=== PATIENT | male | born 1960 | race Caucasian/White ===

== ENCOUNTER → 2017-10-08 10:43 | Outpatient (CLI) | payer OTHER, SELFPAY ==
[2017-10-08 12:17] LABS: Absolute Lymphocyte Count 1.39 X10^3/ul (0.83-4.51); Absolute Neutrophil Count 2.9 X10^3/uL (2.0-7.7); Basophil# 0.02 X10^3/uL; Basophil% 0.4 % (0-1); Eosinophil# 0.07 X10^3/uL; Eosinophils% 1.5 % (0-5); Hematocrit 45.2 % (40-54); Hemoglobin 15.6 g/dl (13.0-16.5); Lymphocyte # 1.39 X10^3/ul (4.0); Lymphocyte % 29.3 % (19-41); Mean Corp Hgb Conc 34.5 g/gl (32-36); Mean Corpuscular Hgb 31.8 pg (27.0-32.0); Mean Corpuscular Volume 92.2 fL (80-94); Mean Platelet Vol. 12.5 fl (6.2-12.0); Monocyte# 0.39 X10^3/uL; Monocyte% 8.2 % (0-10); Neutrophil # 2.87 X10^3/uL (2.7-7.7); Neutrophil % 60.4 % (47-70); Platelet Count 66 K/mm3 (150-450); RBC Distribution Width SD 43.9 fl (35.1-43.9); White Blood Count 4.8 K/mm3 (4.4-11.0)
[2017-10-08 12:23] LABS: POSITIVE COUNT NO; POSITIVE DIFFERENTIAL NO; POSITIVE MORPHOLOGY NO
[2017-10-08 12:43] LABS: ALB/GLOB Ratio 0.9 RATIO (0.9-2.4); AST(SGOT) 41 U/L (15-37); Alanine Aminotransfer ALT/SGPT 71 U/L (16-61); Albumin, Serum 3.7 g/dL (3.2-5.0); Alkaline Phosphatase 86 U/L (45-117); Anion Gap 8 (5-15); BUN 13 mg/dL (7-18); BUN/Creat Ratio 13.8 RATIO (10-20); Calcium,Total 8.7 mg/dL (8.5-10.1); Chloride 104 mmol/L (98-107); Creatinine, Serum 0.94 mg/dL (0.70-1.30); EST Glomerular Filtration Rate 88 mL/min (>60); Est Glom Filt Rate - Afr Amer 106 mL/min (>60); Globulin 4.2 g/dL (2.2-4.2); Glucose 177 mg/dL (74-106); Potassium 4.2 mmol/L (3.5-5.1); Protein, Total 7.9 g/dL (6.4-8.2); Sodium Level 139 mmol/L (136-145); Thyroid Stim Hormone (TSH) 2.31 uIU/mL (0.358-3.74)
== END ==
PROVIDERS: Family Provider Family Medicine; PCP Family Medicine; Visit Provider Family Medicine
DX: E11.65 Type 2 diabetes mellitus with hyperglycemia (principal); E78.5 Hyperlipidemia, unspecified; I10 Essential (primary) hypertension
CPT/HCPCS: 36415; 80053; 84439; 84443; 85025

== ENCOUNTER → 2017-11-05 08:23 | Outpatient (CLI) | payer OTHER, SELFPAY ==
[2017-11-05] VITALS (10 sets, daily range): BP systolic 116–159; BP diastolic 56–85; PULSE 55–94; RESP 14–20; TEMP 36.9; O2SAT 66–97; BMI 36.9
--- NOTE | 2017-11-05 | BMB_PTH ---
PATIENT: ARMANDO CHILEL LOC: CT U#:[id number] AGE/SX: 64/M ROOM: RE11/05/[address]: Dr. Jennifer Mercado MD : 1960 BED: DIS: SPEC #: [id number] RECD: 11/05/17 11:09 STATUS: MARIELLE TAVO #: [id number] OLINDA: 11/05/17 00:[address]: Jennifer Mercado DEPT: BONE MARROW RECD BY: Eris Mullins ENTERED: 11/05/17 11:09 SP TYPE: BMB OTHR DR: Dr. Felix Garcia MD Tissues: A - Bone marrow, NOS B - Bone marrow, NOS C - Bone marrow, NOS Procedures: PERIPH Decalcification bone/plaque Bone Marrow Aspiration Special Stain Group II PAS Stain (control) Retic (control) Iron Stain (control) Peña Stain (control) Bone Marrow Core Biopsy Iron Stain Bone Marrow HEADER OPERATION: Bone marrow biopsy and aspiration PRE-OP DIAGNOSIS: Thrombocytopenia TISSUE SUBMITTED: A - Core, B - Clot, C - Smears, and send outs (flow, cytogenetics and MDS FISH) BONE MARROW DIAGNOSIS Bone marrow biopsy, clot and aspiration: Markedly hemodilute specimen. Rare maturing bone marrow elements present. No evidence of malignancy. AM:salvatore 11/08/17 COMMENT Flow cytometry analysis of aspirate material reveals no phenotypic evidence of abnormal myeloid maturation, increased blasts or lymphoproliferative disorder. The flow complete flow analysis is viewable in patient?s EMR. Case has been reviewed in consultation with Dr. Warren who concurs with the above diagnosis. IDC:SJ BONE MARROW STUDY Slides are reviewed. CBC DATE: 11/05/17 WBC 3.9; RBC 4.84; HGB 15.6; HCT 44.5; MCV 91.9; RDW 42.4; PLTS 64,000 SEGS 59.1%; LYMPHS 30.0%; MONOS 8.8%; EOS 1.3%; BASOS 0.5% PERIPHERAL SMEAR: Submitted. RBC: Normocytic and normochromic. WBC: Normomorphic. PLTS: Thrombocytopenia. BONE MARROW ASPIRATE DIFFERENTIAL: 100 cell count. Blasts % (normal 0-2): 2 Promyelocytes % (normal 1-5): 3 Myelocytes and metamyelocytes % (normal 17-41): 20 Bands and Segs % (normal 15-32): 26 Eos % (normal 1-6): 1 Basos % (normal 0-1): 0 Monocytes % (normal 0-4): 2 Erythroid Precursors % (normal 17-35): 34 Lymphocytes % (normal 7-13): 12 Plasma Cells % (normal 0-2): 0 ASPIRATE FINDINGS: Site: Not specified Paucispicular, Hypocellular M/E ratio: 1.5 (Normal 1.5-4.0) Megakaryocytes: Rare maturing forms. Erythropoiesis: Normoblastic. Granulopoiesis: Progressive maturation. CORE BIOPSY FINDINGS: Site: Not specified Adequacy: Inadequate Cellularity: Not applicable M/E ratio: Not applicable Comment: Only rare maturing bone marrow cells present. ASPIRATE CLOT FINDINGS: Site: Not specified Marrow particles: Rare Cellularity: Not applicable M/E ratio: Not applicable Comment: Only rare maturing bone marrow cells present. SPECIAL STAINS WITH MATCHED CONTROLS: Iron: Focal stainable iron present Reticulin: Within normal limits. Only rare maturing bone marrow cells present. PAS: Highlights myeloid cells and megakaryocytes. BONE MARROW GROSS A - Received is a container labeled with the patient's name and designated bone marrow. The specimen consists of an elongated piece of bone measuring 0.5 cm in length and 0.2 cm in diameter. The specimen is totally submitted in one cassette after decalcification. B - Received labeled with the patient's name and designated bone marrow is a specimen that consists of approximately 8 cc of bloody fluid that on filtration yields multiple minute fragments of blood clots measuring in aggregate 1 x 0.5 x <0.1 cm. The specimen is totally submitted in one cassette. C - Also received are 28 unstained and 1 peripheral stained slides. The unstained slides are submitted for appropriate staining. Also received is 1 green top tube which is sent to our reference lab for flow, cytogenetics and MDS FISH. / SJ:rg 11/05/17 TC: CPT: 16168, 14867, 82744 x2, 80206 x3, 02077 ADDENDUM ADDENDUM ADDENDUM ADDENDUM ADDENDUM ADDENDUM ADDENDUM ADDENDUM ADDENDUM ADDENDUM ADDENDUM ADDENDUM ADDENDUM ADDENDUM 11/19/2017 11:00 ADDENDUM 11/19/2017 11:00 ADDENDUM 11/19/2017 11:00 ADDENDUM 11/19/2017 11:00 ADDENDUM 11/19/2017 11:00 CYTOGENETICS REPORT FROM [facility] INTERPRETATION AND COMMENTS: Karyotype: 46,XY[20] A normal male karyotype was observed in twenty metaphases analyzed. [facility] NGS MDS PANEL SEQUENCING REPORT INTERPRETATION SUMMARY: An unclear variant in RUNX1 ([id number]) was detected in this patient?s sample. Please see complete report in e-chart or EMR for further details
--- NOTE | 2017-11-05 10:00 | CT_ITS ---
PROCEDURE: CT GUIDED BONE marrow biopsy of the right iliac bone. DATE: November 05, 2017. INDICATION: Male, 57 years old. Thrombocytopenia. PHYSICIAN: William Schultz M.D. RADIATION DOSAGE (If Supplied By Facility): CTDIvol = ( 31 ) mGy, DLP = ( 492.6 ) mGycm. Individualized dose reduction techniques were utilized. PROCEDURE: The risks, benefits, and alternatives to the procedure were explained to the patient. The specific risk of hemorrhage requiring further treatment or intervention was detailed and accepted. Follow-up instructions were discussed with the patient as well. Written informed consent was obtained. The patient was brought into the CT suite and placed in the left side down decubitus position. . An appropriate entry site was identified. The overlying skin was prepped and draped in the usual sterile fashion. 1% lidocaine was administered subcutaneously for local anesthesia. Conscious sedation was performed. The patient received 3 mg of Versed and 75 mcg of fentanyl intravenously. Conscious sedation was started at 10:08 AM and terminated at 10:30 AM. The patient was monitored independently by the department nurse. Under CT guidance, a bone marrow biopsy was performed. 15 cc of bone marrow aspirate was obtained as well. The specimens were then placed in the appropriate fluid and transported to the laboratory for analysis. Hemostasis was obtained. The patient tolerated the procedure well without immediate complications. CT/Biopsy/Inj or Needle Placement IMPRESSION: Successful CT guided right iliac bone marrow biopsy and bone marrow aspiration, as described above. Electronically Signed: William Schultz MD at 10:46 EDT Tel [phone], Service support ,
[2017-11-05 10:48] LABS: Bone Marrow Aspiraton SEE PATHOLOGY REPORT
[2017-11-05 10:58] LABS: Absolute Lymphocyte Count 1.16 X10^3/ul (0.83-4.51); Absolute Neutrophil Count 2.3 X10^3/uL (2.0-7.7); Basophil# 0.02 X10^3/uL; Basophil% 0.5 % (0-1); Eosinophil# 0.05 X10^3/uL; Eosinophils% 1.3 % (0-5); Hematocrit 44.5 % (40-54); Hemoglobin 15.6 g/dl (13.0-16.5); Lymphocyte # 1.16 X10^3/ul (4.0); Mean Corp Hgb Conc 35.1 g/gl (32-36); Mean Corpuscular Hgb 32.2 pg (27.0-32.0); Mean Corpuscular Volume 91.9 fL (80-94); Mean Platelet Vol. 12.4 fl (6.2-12.0); Monocyte# 0.34 X10^3/uL; Monocyte% 8.8 % (0-10); Neutrophil # 2.29 X10^3/uL (2.7-7.7); Neutrophil % 59.1 % (47-70); Platelet Count 64 K/mm3 (150-450); RBC Distribution Width CV 12.8 % (11.6-14.6); RBC Distribution Width SD 42.4 fl (35.1-43.9); Red Blood Count 4.84 M/mm3 (4.6-6.2); White Blood Count 3.9 K/mm3 (4.4-11.0)
[2017-11-05 11:02] LABS: POSITIVE COUNT NO; POSITIVE DIFFERENTIAL NO; POSITIVE MORPHOLOGY NO; Pathologist Review May foll
== END ==
PROVIDERS: Family Provider Family Medicine; PCP Family Medicine; Visit Provider Internal Medicine Hematology & Oncology
DX: D69.6 Thrombocytopenia, unspecified (principal)
CPT/HCPCS: 38221; 77012; 85025; 88305; 88311; 88313; 99156; 99157; J7040; A4216

== ENCOUNTER → 2017-12-03 12:18 | Outpatient (CLI) | payer OTHER, SELFPAY ==
[2017-12-03 13:28] LABS: Vitamin B12 438 pg/mL (211-911)
[2017-12-03 20:24] LABS: Xtra Tube EP Lab EXTRA TUBE
== END ==
PROVIDERS: Family Provider Family Medicine; PCP Family Medicine; Visit Provider Internal Medicine Hematology & Oncology
DX: D69.6 Thrombocytopenia, unspecified (principal)
CPT/HCPCS: 36415; 82607

== ENCOUNTER → 2019-03-13 09:48 | Outpatient (CLI) | payer OTHER, SELFPAY ==
[2018-12-15 08:52] VITALS: BMI 36.8
[2019-03-13 12:19] LABS: Absolute Lymphocyte Count 0.81 X10^3/uL (0.83-4.51); Absolute Neutrophil Count 1.9 X10^3/uL (2.0-7.7); Basophil# 0.01 X10^3/uL; Basophil% 0.3 % (0-1); Eosinophil# 0.03 X10^3/uL; Hematocrit 42.3 % (40-54); Hemoglobin 14.1 g/dL (13.0-16.5); Lymphocyte # 0.81 X10^3/ul (4.0); Lymphocyte % 26.8 % (19-41); Mean Corp Hgb Conc 33.3 g/dL (32-36); Mean Corpuscular Hgb 30.8 pg (27.0-32.0); Mean Corpuscular Volume 92.4 fL (80-94); Monocyte# 0.24 X10^3/uL; Monocyte% 7.9 % (0-10); NRBC Flagged by Analyzer 0 % (0-5); Neutrophil # 1.93 X10^3/uL (2.7-7.7); POSITIVE COUNT YES; Platelet Count 54 K/mm3 (150-450); RBC Distribution Width CV 13.2 % (11.6-14.6); RBC Distribution Width SD 44.7 fl (35.1-43.9); Red Blood Count 4.58 M/mm3 (4.6-6.2)
[2019-03-13 12:39] LABS: Anion Gap 4 (5-15); BUN 9 mg/dL (7-18); Chloride 107 mmol/L (98-107); EST Glomerular Filtration Rate 92 mL/min (>60); Est Glom Filt Rate - Afr Amer 111 mL/min (>60); Glucose 133 mg/dL (74-106); Sodium Level 140 mmol/L (136-145)
== END ==
PROVIDERS: Family Provider Family Medicine; PCP Family Medicine; Visit Provider Family Medicine
DX: I10 Essential (primary) hypertension (principal); D69.6 Thrombocytopenia, unspecified
CPT/HCPCS: 36415; 80048; 85025